=== PATIENT | male | born 1980 | race African-American/Black ===

== ENCOUNTER 2020-12-04 20:41 | Emergency (ER) | payer BC, SELFPAY ==
[2020-12-04 20:42] VITALS: BP 126/67; PULSE 66; RESP 16; TEMP 36.5; O2SAT 98; BMI 30.1
[2020-12-04 20:57] VITALS: PULSE 87; RESP 14; TEMP 36.8; O2SAT 99; BMI 36.3
[2020-12-04 21:09] VITALS: BP 126/72; PULSE 85; RESP 15; TEMP 36.8
--- NOTE | 2020-12-04 21:13 | HMH.EDUTC ---
[facility] Clinical Impression: Poison fady Contact dermatitis Qualifiers: Contact dermatitis type: unspecified Contact dermatitis trigger: unspecified trigger Qualified Code(s): L25.9 - Unspecified contact dermatitis, unspecified cause Disposition: Home, Self-Care Condition on Discharge: Good Instructions: DI for Contact Dermatitis, DI for Poison Fady Allergy Additional Instructions: Avoid contact with the offending substance (poison fady). Don't start the oral steroids until tomorrow. Don't put the topical steroids (triamcinolone) on your face or your groin. Follow up with your regular doctor. GO TO THE ER FOR ANY WORSENING SYMPTOMS OR CONCERNS Prescriptions: diphenhydrAMINE HCL [Diphenhydramine HCl] 25 mg PO Q6HP PRN #30 cap PRN Reason: Itching Transmission Status: Received by [facility] #[id number] predniSONE [Deltasone 10mg tablet] 10 mg PO DAILY 9 Days #21 tab Transmission Status: Received by [facility] #[id number] Triamcinolone Acetonide 1 applicatio TP TIDP PRN 7 Days #1 gm PRN Reason: Itching Transmission Status: Received by [facility] #[id number] Referrals: Provider,Referral, [Primary Care Provider] - Forms: Work/School Release Time of Disposition: 21:17 Medical Decision Making - Medical Records Medical records reviewed: No: I reviewed the patient's medical records. - Lg Inquiry Pt receiving controlled substance: No Vital Signs: 12/04/20 20:42 12/04/20 20:57 12/04/20 21:09 Temperature 97.7 F 98.3 F 98.3 F Temperature Source Oral Oral Pulse Rate 85 Pulse Rate [Right] 66 87 Respiratory Rate 16 14 15 Blood Pressure 126/72 Blood Pressure [Right Arm] 126/67 Blood Pressure Mean [Right Arm] 86 Blood Pressure Source [Right Arm] Automatic Cuff Blood Pressure Position [Right Arm] Sitting 02 Sat by Pulse Oximetry 98 99 Oxygen Delivery Method Room Air Orders (Tests/Meds): ED MEDICATIONS Discontinued Medications Generic Name Dose Route Start Last Admin Trade Name Freq PRN Reason Stop Dose Admin Methylprednisolone Sodium Succinate 125 mg 12/04/20 21:12 12/04/20 21:17 Methylprednisolone Sod Succ 125mg Vial IM 12/04/20 21:13 125 mg ONCE ONE Administration [facility] HPI - General Stated complaint: poison fady on arms legs feet chest and back Time Seen by Provider: 12/04/20 21:13 Mode of Arrival: Ambulatory Source of Information: Patient Limitations: No Limitations Description of Symptoms (Recalled from Triage Doc. by RN): PT C/O POISON FADY HEENT Symptoms (Recalled from RN notes): No Resp Symptoms (Recalled from RN notes): No Skin Symptoms (Recalled from RN notes): Yes (POISON FADY) MS Symptoms (Recalled from RN notes): No Functional Status (Recalled from RN notes): NA - History of Present Illness Provider Complaint: He states that about 1 week ago he work outside in his yard. He started to break out afterwards. He has poison fady on his bilateral arms, chest, neck, bilateral legs. He usually has to get a steroid shot to get it better once he gets poison fady. - Related Data Previous Rx's Medication Instructions Recorded Triamcinolone Acetonide 1 applicatio TP TIDP PRN 7 Days #1 12/04/20 gm diphenhydrAMINE HCL 25 mg PO Q6HP PRN #30 cap 12/04/20 [Diphenhydramine HCl] predniSONE [Deltasone 10mg tablet] 10 mg PO DAILY 9 Days #21 tab 12/04/20 Allergies Allergy/AdvReac Type Severity Reaction Status Date / Time NKDA Allergy Unknown Uncoded 03/23/17 15:40 - Worker's Comp Is this a Worker's Comp case?: No [facility] History - Hepatitis A Screen Drug use history?: No High risk sexual behaviors?: No History of sexually transmitted infection?: No Currently employed?: No Childcare worker?: No Do you have indoor plumbing?: Yes Do you have electricity?: Yes Attestation statement:: This patient has been screened for Hepatitis A risk factors. I have reviewed the patient's past medical history: Yes M
== END 2020-12-04 21:22 | disposition home or self-care (01) ==
PROVIDERS: Emergency Provider Nurse Practitioner Family
DX: L23.7 Allergic contact dermatitis due to plants, except food (principal)
CPT/HCPCS: 96372; 99202; G0463

== ENCOUNTER → 2021-04-09 11:52 | Outpatient (CLI) | payer BC, SELFPAY | PROVIDERS: Visit Provider Nurse Practitioner | DX: U07.1 COVID-19 (principal) | CPT/HCPCS: C9803; U0003; U0005 ==

== ENCOUNTER 2023-04-16 16:14 | Emergency (ER) | payer BC, SELFPAY ==
[2023-04-16 16:25] VITALS: BP 134/97; PULSE 71; RESP 21; TEMP 36.6; O2SAT 96; BMI 33.0
--- NOTE | 2023-04-16 16:37 | ED_ITS ---
Discharge Plan Disposition Patient Disposition: Home, Self-Care Condition: Good Prescriptions Prescriptions: New ibuprofen [IBU] 800 mg tablet 800 mg PO Q8HP PRN (Reason: Moderate Pain) Qty: 30 0RF amoxicillin [amoxicillin] 875 mg tablet 875 mg PO Q12H Qty: 20 0RF ciprofloxacin-dexamethasone 0.3-0.1 % Drops,Suspension 2 drp OTIC (EAR) BID 7 Days Qty: 1 0RF Referrals Follow up/Referrals: Abraham Young [Primary Care Provider] - See instructions Activity Restrictions/Add. Instructions Additional Instructions/Restrictions: Drink plenty of fluids. Take tylenol or ibuprofen for pain or fever. Take the medications as directed. Use the ear drops as directed. Follow up with your regular doctor. GO TO THE ER FOR ANY WORSENING SYMPTOMS Clinical Impressions Clinical Impression: Left acute otitis media Stand Alone Forms Stand Alone Forms: Work/School Release Instructions Patient Instructions: How to Instill Ear Drops, Middle Ear Infection Discharge ED Provider: Scott Hernandez [facility] General Stated complaint: poss inf ear Time Seen by Provider: 04/16/23 16:36 History of Present Illness Provider Complaint: He states that for the past 2 weeks he has had ear pain. Over the past couple of days he has began to have drainage from his left ear. He denies other complaints. Related Data Previous Rx's Medication Instructions Recorded amoxicillin 875 mg tablet 875 mg PO Q12H #20 tabs 04/16/23 ciprofloxacin 0.3 %-dexamethasone 2 drp otic (ear) BID 7 days #1 ea 04/16/23 0.1 % ear drops,suspension ibuprofen 800 mg tablet (IBU) 800 mg PO Q8HP PRN Moderate Pain 04/16/23 #30 tabs Allergies Allergy/AdvReac Type Severity Reaction Status Date / Time No Known Allergies Allergy Verified 04/16/23 16:46 [facility] Disclaimer: The information contained in this section may have been updated after the patient was seen, as this information can be updated by other users. Social History Smoking Status: Current every day smoker tobacco type: cigarettes packs per day: 1 alcohol intake: never substance use type: marijuana current occupational status: employed Travel in the last 8 weeks: None ROS Obtained: Yes All systems reviewed & no additional complaints except as documented Constitutional Constitutional: Denies chills, Reports fever(s) and Reports poor appetite Eyes Eyes: Denies eye discharge ENT Ears, Nose, Mouth, and Throat: Denies ear discharge, Reports otalgia, Denies hearing loss, Denies sinus pain and Reports sore throat Cardiovascular Cardiovascular: Denies chest pain and Denies dyspnea Respiratory Respiratory: Denies chest congestion, Reports cough and Denies dyspnea Gastrointestinal Gastrointestingal: Denies abdominal pain, diarrhea, nausea or vomiting Musculoskeletal Musculoskeletal: Denies arthralgias Integumentary/Breasts Skin/Breast: Denies rash Physical Exam General General appearance: alert and in no apparent distress Head Head exam: atraumatic, normocephalic and normal inspection Eye Eye exam: Present normal appearance; Absent PERRL or EOMI ENT ENT exam: Present mucous membranes moist and normal external ear exam Expanded ENT Exam TM/Canal exam: Left TM: perforation and Bilateral TM: erythema, bulging and effusion Nose exam: Absent sinus tenderness Nasal speculum exam: Bilateral: normal Mouth exam: Present normal external inspection and other; Absent drooling Teeth exam: Present normal inspection Throat exam: Present tonsillar erythema and tonsillomegaly Neck Neck exam: Present normal inspection, full ROM and trachea midline; Absent tenderness, meningismus or lymphadenopathy Chest Chest inspection: Present normal inspection and symmetric chest wall rise; Absent tenderness Respiratory Respiratory exam: Present normal lung sounds bilaterally; Absent respiratory distress, wheezes or stridor Cardiovascular Cardiovascular exam: Present regular rate, normal rhythm and normal heart sounds; Absent tachycardia or irregular rhythm Abdominal Exam Abdominal exam: Present soft and normal bowel sounds; Absent distention, tenderness, guarding, rebound or rigidity Extremities Exam Extremities exam: Present normal inspection and normal capillary refill; Absent tenderness, joint swelling or calf tenderness Back Exam Back exam: Present normal inspection and full ROM; Absent tenderness, CVA tenderness (R) or CVA tenderness (L) Neurological Exam Neurological exam: Present alert, oriented X3, CN II-XII intact, normal gait and reflexes normal; Absent motor sensory deficit Psychiatric Psychiatric exam: Present normal affect and normal mood Skin Skin exam: Present warm, dry, intact and normal color Lymphatic Lymphatic Findings: no adenopathy Medical Decision Making Medical Records Medical records reviewed: No I reviewed the patient's medical records. Lg Inquiry Pt receiving controlled substance: No
[2023-04-16 16:56] VITALS: BP 134/97; PULSE 71; RESP 21; TEMP 36.6; O2SAT 96
== END 2023-04-16 17:03 | disposition home or self-care (01) ==
PROVIDERS: Emergency Provider Nurse Practitioner Family; PCP Pediatrics
DX: H66.92 Otitis media, unspecified, left ear (principal); F17.210 Nicotine dependence, cigarettes, uncomplicated
CPT/HCPCS: 99212; 99214; G0463